=== PATIENT | male | born 1985 | race Caucasian/White ===

== ENCOUNTER 2022-02-19 16:38 | Emergency (ER) | payer OTHER, SELFPAY ==
[2022-02-19 16:51] VITALS: BP 111/70; PULSE 74; RESP 18; TEMP 36.2; O2SAT 99; BMI 30.6
--- NOTE | 2022-02-19 17:10 | ED.GENADULT ---
HPI - General Adult General Time Seen by Provider: 17:11 Date Seen: 02/19/22 Chief complaint: Neuro Symptoms/Altered Deficit Stated complaint: numbness in lt face and rt arm Time Seen by Provider: 02/19/22 16:48 History of Present Illness HPI narrative: Jamshid is a 36-year-old male past medical history includes anxiety presents emerged department from work with some neuro symptoms including numbness in the left face and arm. 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 Patient states over the last 4-5 days he has had some tingling on the top of his scalp, and some left-sided facial paresthesia, this will usually come and go, denies any facial weakness, difficulty with speech or swallowing, he also gets this intermittent left arm paresthesia and tingling. 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 Patient denies any cardiac history, family history noncontributory. Does not smoke socially uses alcohol, no illicit drug use. Patient denies any headache, visual deficits, nausea vomiting, he has no pain at this time, around 3 this afternoon his symptoms were present, he was instructed to be checked on the emergency department. Patient has no weakness in his upper and lower extremities, no issues with gait. He has not had any dizziness or lightheadedness. No recent illness, fevers, chills. No other concerns at this time. Related Data Home Medications Medication Instructions Recorded Confirmed No Known Home Medications 02/19/22 02/19/22 Allergies Allergy/AdvReac Type Severity Reaction Status Date / Time No Known Drug Allergies Allergy Verified 02/19/22 16:54 Review of Systems Status of ROS: Reports: 10 or more systems reviewed and unremarkable except as noted in History and below [facility] Social History Smoking Status: Never smoker Do you use any of these nicotine containing products: None Second hand tobacco smoke exposure: No How often do you have a drink containing alcohol: never How often do you have six or more drinks on one occasion: Never AUDIT-C Alcohol total score: 0 Non-prescribed substance use: denies use Exam Narrative: Exam Narrative: General: No obvious distress sitting comfortably HEENT: Tympanic membranes within normal limits, pupils equal round reactive to light, peripheral vision normal in all travis, finger discrimination, extraocular muscles intact, neck is supple full range of motion Lungs: Clear to auscultation bilaterally Heart: Normal sinus rhythm S1-S2 Abdomen: Soft nontender, bowel sounds present: Muscle skeletal: +5 strength his upper and lower extremities bilaterally Neuro: Cranial nerves 2-12 grossly intact, no focal deficits noted, gait within normal limits Psych: Mood and affect normal Const: Vital Signs, click to edit/add: Vital Signs - 24 hr 02/19/22 16:51 Temperature 97.1 F L Pulse Rate [Right Pulse Oximeter] 74 Respiratory Rate 18 Blood Pressure [Ri ght Upper Arm] 111/70 Pulse Oximetry 99 Oxygen Delivery Me thod Room Air Course Course Hospital Course: 5:00 PM: AIDET performed. work up will include cardiac labs due to his recent episode of chest pain, left arm numbness, including EKG, troponin, CRP, TSH, CMP and CK, less likely cardiac related, or neuropathy, rule out any metabolic abnormality, did discuss obtaining CT head without IV contrast, patient declines at this time due to cost, symptoms are intermittent, making more serious etiologies concerning. Reevaluation(s) Reevaluation #1: Patient was updated on his ECG and labs results, ECG showed a sinus bradycardia with sinus arrhythmia, no comparisons, no ectopy or acute ST changes, per ED provider. CBC was unremarkable, POC Troponin negative, metabolic panel, CRP, CK and TSH all within normal limits. He will follow up with primary care provider, to discuss whether MRI brain will be done on an outpatient basis, reasons return were given, all questions answered. Time: 18:06 Vital Signs Vital signs: Initial Vital Signs Temperature 97.1 F L 02/19/22 16:51 Temperature Source Temporal Artery Scan 02/19/22 16:51 Pulse Rate 74 02/19/22 16:51 Respiratory Rate 18 02/19/22 16:51 Blood Pressure 111/70 02/19/22 16:51 Blood Pressure Mean 83 02/19/22 16:51 Blood Pressure Position Sitting 02/19/22 16:51 Pulse Oximetry 99 11/03/22 16:51 Oxygen Delivery Method 02/19/22 16:51 Vital Signs Temperature 97.1 F L 02/19/22 16:51 Pulse Rate 74 02/19/22 16:51 Respiratory Rate 18 02/19/22 16:51 Blood Pressure 111/70 02/19/22 16:51 Pulse Oximetry 99 02/19/22 16:51 Oxygen Delivery Method 02/19/22 16:51 Temperature 97.1 F L 02/19/22 16:51 Pulse Rate 74 02/19/22 16:51 Respiratory Rate 18 02/19/22 16:51 Blood Pressure 111/70 02/19/22 16:51 Pulse Oximetry 99 02/19/22 16:51 Oxygen Delivery Method 02/19/22 16:51 Medical Decision Making Lab Data Labs: Lab Results 02/19/22 02/19/22 02/19/22 Range/Units 17:21 17:21 17:21 WBC 5.88 (4.50-11.00) K/uL RBC 5.30 (4.30-5.90) m/uL Hgb 15.1 (13.5-17.5) gm/dL Hct 44.4 (37.0-53.0) % MCV 84 (80-100) fL MCH 29 (26-34) pg MCHC 34 (32-36) gm/dL RDW Coeff of Ct 12.3 (11.5-15.5) % Plt Count 323 (140-440) K/uL Neut % (Auto) 47.2 (42.0-72.0) % Lymph % (Auto) 44.2 H (20-44) % Petroleum % (Auto) 5.6 (0.0-11.0) % Eos % (Auto) 2.7 (0.0-7.0) % Baso % (Auto) 0.3 (0.0-3.0) % Neut # (Auto) 2.77 (1.7-7.0) K/uL Lymph # (Auto) 2.60 (0.90-2.90) K/uL Petroleum # (Auto) 0.30 (0.00-0.90) K/UL Eos # (Auto) 0.16 (0.00-0.50) K/uL Baso # (Auto) 0.02 (0.00-0.30) K/uL Abs Immat Gran (auto) 0.00 (0.00-0.30) K/uL Imm/Tot Granulo (auto) 0.0 % Sodium 141 (135-149) mmol/L Potassium 4.3 (3.6-5.1) mmol/L Chloride 102 (96-114) mmol/L Carbon Dioxide 26 (20-32) mmol/L BUN 19 (5-24) mg/dL Creatinine 1.1 (0.5-1.5) mg/dL Estimated Creat Clear 96.78 Estimated GFR 90 ml/min Glucose 91 (60-115) mg/dL Calcium 9.4 (8.4-10.6) mg/dL Total Bilirubin 0.7 (0.1-1.5) mg/dL AST 28 (12-35) U/L ALT 28 (4-50) U/L Alkaline Phosphatase 72 (40-150) U/L Total Creatine Kinase 147 (54-186) U/L C-Reactive Protein < 0.5 L (0.5-1.0) mg/dL Total Protein 7.9 (6.0-8.3) g/dL Albumin 5.0 (3.3-5.0) g/dL TSH 1.400 (0.270-4.20) uIU/mL POC Troponin I (0.01-0.04) ng/ml 02/19/22 Range/Units 17:34 WBC (4.50-11.00) K/uL RBC (4.30-5.90) m/uL Hgb (13.5-17.5) gm/dL Hct (37.0-53.0) % MCV (80-100) fL MCH (26-34) pg MCHC (32-36) gm/dL RDW Coeff of Ct (11.5-15.5) % Plt Count (140-440) K/uL Neut % (Auto) (42.0-72.0) % Lymph % (Auto) (20-44) % Petroleum % (Auto) (0.0-11.0) % Eos % (Auto) (0.0-7.0) % Baso % (Auto) (0.0-3.0) % Neut # (Auto) (1.7-7.0) K/uL Lymph # (Auto) (0.90-2.90) K/uL Petroleum # (Auto) (0.00-0.90) K/UL Eos # (Auto) (0.00-0.50) K/uL Baso # (Auto) (0.00-0.30) K/uL Abs Immat Gran (auto) (0.00-0.30) K/uL Imm/Tot Granulo (auto) % Sodium (135-149) mmol/L Potassium (3.6-5.1) mmol/L Chloride (96-114) mmol/L Carbon Dioxide (20-32) mmol/L BUN (5-24) mg/dL Creatinine (0.5-1.5) mg/dL Estimated Creat Clear Estimated GFR ml/min Glucose (60-115) mg/dL Calcium (8.4-10.6) mg/dL Total Bilirubin (0.1-1.5) mg/dL AST (12-35) U/L ALT (4-50) U/L Alkaline Phosphatase (40-150) U/L Total Creatine Kinase (54-186) U/L C-Reactive Protein (0.5-1.0) mg/dL Total Protein (6.0-8.3) g/dL Albumin (3.3-5.0) g/dL TSH (0.270-4.20) uIU/mL POC Troponin I 0.00 L (0.01-0.04) ng/ml Discharge Plan Discharge Clinical Impression: Paresthesia, Atypical chest pain, Electrical shock sensation Patient Disposition: Home, Self-Care Condition: Improved Instructions: Paresthesia (ED) Additional Instructions: To follow-up with a primary care provider over the next 7-10 days, discussed about obtaining a MRI brain if needed, return if worsening symptoms. Activity Level: No Restrictions Discharge Diet: Regular Prescriptions: No Action No Known Home Medications Stand Alone Forms: [employer] Info Instructions
[2022-02-19 17:47] LABS: Basophils Absolute Auto 0.02 K/uL (0.00-0.30); Basophils Percent Auto 0.3 % (0.0-3.0); Eosinophils Absolute Auto 0.16 K/uL (0.00-0.50); Eosinophils Percent Auto 2.7 % (0.0-7.0); Hematocrit 44.4 % (37.0-53.0); Hemoglobin* 15.1 gm/dL (13.5-17.5); Lymphocytes Percent Auto 44.2 % (20-44); Mean Corpuscular HGB Conc 34 gm/dL (32-36); Mean Corpuscular Hemoglobin 29 pg (26-34); Mean Corpuscular Volume 84 fL (80-100); Monocytes Percent Auto 5.6 % (0.0-11.0); Neutrophils Absolute Auto 2.77 K/uL (1.7-7.0); Neutrophils Percent Auto 47.2 % (42.0-72.0); Platelet Count* 323 K/uL (140-440); RDW Coefficient of Variation % 12.3 % (11.5-15.5); White Blood Count* 5.88 K/uL (4.50-11.00)
[2022-02-19 17:48] LABS: Slide Review Reflex No
[2022-02-19 18:06] LABS: Chloride* 102 mmol/L (96-114)
[2022-02-19 18:07] LABS: Potassium* 4.3 mmol/L (3.6-5.1); Sodium* 141 mmol/L (135-149)
[2022-02-19 18:09] LABS: Alkaline Phosphatase* 72 U/L (40-150); Aspartate Amino Transferase* 28 U/L (12-35); Bilirubin Total* 0.7 mg/dL (0.1-1.5); Carbon Dioxide* 26 mmol/L (20-32); Creatinine* 1.1 mg/dL (0.5-1.5); Est. Creatinine Clearance* 96.78; Estimated Glomerular Filt Rate 90 ml/min; Total Protein* 7.9 g/dL (6.0-8.3)
[2022-02-19 18:10] LABS: Alanine Aminotransferase* 28 U/L (4-50); Blood Urea Nitrogen* 19 mg/dL (5-24); Calcium* 9.4 mg/dL (8.4-10.6); Creatine Kinase* 147 U/L (54-186); Glucose* 91 mg/dL (60-115)
[2022-02-19 18:16] LABS: C Reactive Protein* < 0.5 mg/dL (0.5-1.0)
== END 2022-02-19 18:48 | disposition home or self-care (01) ==
PROVIDERS: Emergency Provider Student in an Organized Health Care Education/Training Program
DX: R20.2 Paresthesia of skin (principal); R07.89 Other chest pain; T75.4XXA Electrocution, initial encounter
CPT/HCPCS: 36415; 80053; 82550; 84443; 85025; 86140; 93005; 99283; 99284

== ENCOUNTER 2022-05-07 14:00 | Outpatient (CLI) | payer OTHER, SELFPAY ==
[2022-05-07 17:08] LABS: Albumin* 4.6 g/dL (3.3-5.0); Chloride* 106 mmol/L (96-114); Potassium* 4.5 mmol/L (3.6-5.1); Sodium* 142 mmol/L (135-149)
[2022-05-07 17:11] LABS: Alanine Aminotransferase* 28 U/L (4-50); Alkaline Phosphatase* 68 U/L (40-150); Aspartate Amino Transferase* 26 U/L (12-35); Bilirubin Total* 1.2 mg/dL (0.1-1.5); Blood Urea Nitrogen* 20 mg/dL (5-24); Carbon Dioxide* 29 mmol/L (20-32); Creatinine* 1.1 mg/dL (0.5-1.5); Estimated Glomerular Filt Rate 90 ml/min; Glucose* 99 mg/dL (60-115); Total Protein* 7.5 g/dL (6.0-8.3)
[2022-05-07 17:12] LABS: Calcium* 9.6 mg/dL (8.4-10.6)
[2022-05-07 17:41] LABS: TSH With Reflex to FT4* 0.971 uIU/mL (0.270-4.200)
== END 2022-05-07 14:01 | disposition home or self-care (01) ==
PROVIDERS: Visit Provider Family Medicine
DX: Z00.00 Encounter for general adult medical examination without abnormal findings (principal); F41.9 Anxiety disorder, unspecified; R35.0 Frequency of micturition; R53.83 Other fatigue
CPT/HCPCS: 80053; 84443

== ENCOUNTER 2023-08-20 23:37 | Outpatient (CLI) | payer OTHER, SELFPAY ==
--- OUTSIDE RECORDS SUMMARY | 2023-09-04 03:19 | XMS_ITS | Clinical Summary ---
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 Encounters Date Type Department Care Team Description 08/26/2023 Orders Only [facility] [address] [place] [address] Antonio Jason 1 scan: (1-Ord) Holter Report ([id number]) 08/25/2023 Orders Only [facility] [address] [place] [address] Mine Hoyos <No scans attached> 08/21/2023 1:40 PM CDT Ancillary Procedure [facility] [address] [place] [address] from Last 3 Months Family History Relation Name Status Comments Brother [...] for age 35-44 2021 COVID-19 vaccine series ( season) 2022 Influenza for age 9-49 12/19/2023 Pneumococcal series for age 6-64 Aged Out No longer eligible based on patient's age to complete this topic Procedures Procedure Name Priority Date/Time Associated Diagnosis Comments HOLTER MONITOR 48 HOURS Routine 08/26/2023 12:00 AM CDT Syncope Bradycardia ECHO TTE COMPLETE WO CONTRAST W BUBBLE Routine 08/21/2023 3:10 PM CDT Syncope from Last 3 Months Results * HOLTER MONITOR 48 HOURS (08/26/2023 12:00 AM CDT) Rashawn Lam MD CARDIAC SERVICES ORD * ECHO TTE COMPLETE WO CONTRAST W BUBBLE (08/21/2023 3:10 PM CDT) AORTIC VALVE MEAN PG 3 mmHg EJECTION FRACTION 64 % PEAK TR VELOCITY 2.4 m/s LVEDD 5.2 cm Anatomical Region Laterality Modality Ultrasound 08/21/2023 2:34 PM CDT Narrative 08/21/2023 8:41 PM CDT ECHOCARDIOGRAM JAMSHID DINH ?Accession#: ?? [id number] : ?1985 37 years Study Date: ?? 08/21/2023 2:34:31 PM Gender: M ? BP: ? 120/71 mmHg Height: 173.00 cm ? BSA: ?2.15 m? ? ? Weight: 102.00 kg ? Tech: ? MCK ?Referring MD: RASHAWN LAM Site: ? [facility] Reading Location: [facility] Patient Location: Inpatient. Procedure: 2D w/ Bubbles, Color Doppler and Spectral Doppler. Indication for study: Syncope Cardiac Rhythm: Sinus bradycardia.Study quality: Fair. Final Impressions: 1. Normal left ventricular size, normal wall thickness, normal global systolic function, calculated EF of 64 %. 2. Right ventricular cavity size is normal, global systolic RV function is normal. 3. No hemodynamically significant valvular heart disease. 4. Normal estimated RA (3 mmHg) and RV systolic (25 mmHg) pressures. 5. 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 There are sparse left sided bubbles noted after 5 cardiac cycles suggesting possible intrapulmonary shunting (clip 100). Clinical correlation advised. Chamber Sizes and Function Normal left ventricular size, normal wall thickness, normal global systolic function, calculated EF of 64 %. Left atrial size is normal. Right ventricular cavity size is normal, global systolic RV function is normal. RV wall thickness is normal. The right atrium is normal. Right atrial volume index is 21 ml/m? ? ?. Right atrial area is 16 cm? ? ?. The pulmonary artery is not well visualized. The sinus of Valsalva is normal sized. The ascending aorta is normal sized. Valves, RV Pressures and Diastolic Function The aortic valve is normal in structure and trileaflet, no stenosis and no regurgitation. The mitral valve is normal in structure, trace mitral regurgitation. Normal diastolic function. The tricuspid valve is normal in structure. Tricuspid regurgitation is trace regurgitation. The tricuspid regurgitant velocity is 2.4 m/s, the estimated right ventricular systolic pressure is 22 mmHg plus right atrial pressure. The pulmonic valve is not well visualized. Trace pulmonary regurgitation. Masses, Effusion, Shunts There is no pericardial effusion. The inferior vena cava is normal sized, respiratory size variation greater than 50%. No left to right shunting was detected by limited color flow Doppler interrogation of the interatrial septum. MEASUREMENTS AND CALCULATIONS 2-D Measurements and LV Function: LVID (d) 5.2 cm Planimetered EF 64 % LVID (s) 2.8 cm LV FS% (2D) ? 46 % IVS (d) ??1.0 cm LVOT diameter ?? 2.5 cm LVPW (d) 1.0 cm HR ?48 bpm Ao Sinus 3.4 cm LA Vol index ?22 ml/m2 Asc Ao ?? 2.9 cm RA Vol index ?21 ml/m2 LA ? 3.6 cm RA area ? 16 cm?RV Max 4C (d) ?? 4.6 cm Diastology: Mitral ?Tissue Doppler E Peak 0.9 m/s ??e', Septum ? 0.14 m/s A Peak 0.4 m/s ??e', Lateral ?0.21 m/s E/A ?2.3 ?E/e' Average ?? 5.21 DT ? 202 msec Aortic Valve: Vmax ? 1.3 m/s ??CHRISTIANO (V) ?? 4.46 cm? ? ? VTI ?0.30 m ?? CHRISTIANO (I) ?? 4.16 cm? ? ? LVOT V max 1.2 m/s ??Max PG ?7 mmHg LVOT VTI ?? 0.25 m ?? Mean PG ?? 3 mmHg SV ? 125 ml ?? Dim Index 0.84 SV index ?? 58 ml/m? ? ? CO ?6.0 l/min ?CI ?2.8 l/min/m? ? ? Mitral Valve: MVA ?3.8 cm? ? ? MV P 1/2 59 msec Tricuspid Valve and estimated PA pressures: TR Vmax 2.4 m/s TAPSE 3.3 cm TR maxG 22 mmHg . This study was interpreted by an [facility] accredited facility. CC: HIM (med records) [facility], Med/Surg - IP [facility]. ??Final ?? Procedure Note Gustavo Byrd MD - 08/21/2023 ECHOCARDIOGRAM JAMSHID DINH : 1985 37 years Study Date: 08/21/2023 2:34:31 PM Gender: M BP: 120/71 mmHg Height: 173.00 cm BSA: 2.15 m? ? ? Weight: 102.00 kg Tech: [facility] Referring MD: RASHAWN LAM Site: [facility] Reading Location: [facility] Patient Location: Inpatient. Procedure: 2D w/ Bubbles, Color Doppler and Spectral Doppler. Indication for study: Syncope Cardiac Rhythm: Sinus bradycardia.Study quality: Fair. Final Impressions: 1. Normal left ventricular size, normal wall thickness, normal globalsystolic function, calculated EF of 64 %. 2. Right ventricular cavity size is normal, global systolic RV functionis normal. 3. No hemodynamically significant valvular heart disease. 4. Normal estimated RA (3 mmHg) and RV systolic (25 mmHg) pressures. 5. 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 There are sparse left sidedbubbles noted after 5 cardiac cycles suggesting possible intrapulmonaryshunting (clip 100). Clinical correlation advised. Chamber Sizes and Function Normal left ventricular size, normal wall thickness, normal globalsystolic function, calculated EF of 64 %. Left atrial size is normal.Right ventricular cavity size is normal, global systolic RV function isnormal. RV wall thickness is normal. The right atrium is normal. Rightatrial volume index is 21 ml/m? ? ?. Right atrial area is 16 cm? ? ?. Thepulmonary artery is not well visualized. The sinus of Valsalva is normalsized. The ascending aorta is normal sized. Valves, RV Pressures and Diastolic Function The aortic valve is normal in structure and trileaflet, no stenosis and noregurgitation. The mitral valve is normal in structure, trace mitralregurgitation. Normal diastolic function. The tricuspid valve is normal instructure. Tricuspid regurgitation is trace regurgitation. The tricuspidregurgitant velocity is 2.4 m/s, the estimated right ventricular systolicpressure is 22 mmHg plus right atrial pressure. The pulmonic valve is notwell visualized. Trace pulmonary regurgitation. Masses, Effusion, Shunts There is no pericardial effusion. The inferior vena cava is normal sized,respiratory size variation greater than 50%. No left to right shunting wasdetected by limited color flow Doppler interrogation of the interatrialseptum. MEASUREMENTS AND CALCULATIONS 2-D Measurements and LV Function: LVID (d) 5.2 cm Planimetered EF 64 % LVID (s) 2.8 cm LV FS% (2D) 46 % IVS (d) 1.0 cm LVOT diameter 2.5 cm LVPW (d) 1.0 cm HR 48 bpm Ao Sinus 3.4 cm LA Vol index 22 ml/m2 Asc Ao 2.9 cm RA Vol index 21 ml/m2 LA 3.6 cm RA area 16 cm? ? ? RV Max 4C (d) 4.6 cm Diastology: Mitral Tissue Doppler E Peak 0.9 m/s e', Septum 0.14 m/s A Peak 0.4 m/s e', Lateral 0.21 m/s E/A 2.3 E/e' Average 5.21 DT 202 msec Aortic Valve: Vmax 1.3 m/s CHRISTIANO (V) 4.46 cm? ? ? VTI 0.30 m CHRISTIANO (I) 4.16 cm? ? ? LVOT V max 1.2 m/s Max PG 7 mmHg LVOT VTI 0.25 m Mean PG 3 mmHg SV 125 ml Dim Index 0.84 SV index 58 ml/m? ? ? CO 6.0 l/min CI 2.8 l/min/m? ? ? Mitral Valve: MVA 3.8 cm? ? ? MV P 1/2 59 msec Tricuspid Valve and estimated PA pressures: TR Vmax 2.4 m/s TAPSE 3.3 cm TR maxG 22 mmHg . This study was interpreted by an [facility] accredited facility. CC: HIM (med records) [facility], Med/Surg - IP [facility]. Final Rashawn Lam MD ECHO ORD from Last 3 Months Care Teams Asbestos Hazard Abatement Worker Relationship Specialty Start Date End Date Pcp, No . PCP - General 06/01/19
--- OUTSIDE RECORDS SUMMARY | 2023-09-04 03:19 | XMS_ITS | Clinical Summary ---
Author Name Unknown Organization [facility] Address [address] [place] [address] Care Team Providers Care Director Sales Support Name Role Phone Needs Pcp, Assignment Primary Care Provider Source Comments You are receiving this document as you are listed as the primary care provider,follow-up provider, or the patient has been referred to you for consultation.This is in compliance with the Medicare and[facility] E[facility] Incentive Program,which states Providers who transition [...] (1 - 2022-2 4 season) 2022 Influenza (Season Ended) 2023 DTaP/Tdap/Td (2 - Tdap) 11/27/2027 11/26/2017 Zoster/Shingles [...] age to complete this topic Care Teams Director Sales Support Relationship Specialty Start Date End Date Needs Pcp, [place] [address] PCP - General 01/08/22
== END 2023-08-20 23:38 | disposition home or self-care (01) ==
LOC: AMB 09-04 03:16
PROVIDERS: PCP Family Medicine; Visit Provider Family Medicine
DX: R56.9 Unspecified convulsions (principal)
CPT/HCPCS: A0425; A0433

== ENCOUNTER 2023-08-21 00:05 | Observation (INO) | payer OTHER, SELFPAY ==
[2023-08-21] VITALS (49 sets, daily range): BP systolic 102–125; BP diastolic 53–86; PULSE 51–87; RESP 14–18; TEMP 36.4–36.7; O2SAT 74–100; BMI 33.5; BMI 34.1
--- NOTE | 2023-08-21 00:14 | XR_ITS ---
Patient: KIM DINH Facility:?[facility] Patient ID:?[id number] Site Patient ID:?[id number]. Site :?[id number] Study:?XRay-Chest 1V PORTABLE-08/21/2023 12:35:03 AM Ordering Physician:DARSHANA Final Report: INDICATION: Bradycardia. TECHNIQUE: Chest 1 view. COMPARISON: 01/12/2016. FINDINGS: Lines and tubes: None. Cardiovascular and mediastinum: Heart size and vasculature are normal in caliber and appearance. Lungs and pleural spaces: Mild low lung volumes with bronchovascular crowding. No focal consolidation. No pleural effusion or pneumothorax Bones and soft tissues: Unremarkable for age. IMPRESSION: No evidence of an acute pulmonary process. Dictated by Gustavo Suggs MD @ 08/21/2023 12:47:47 AM Signed by:?Gustavo Suggs MD @08/21/2023 12:47:47 AM (Electronic Signature)
[2023-08-21] MEDS: 0.9 % SODIUM CHLORIDE 1000 ml 1,000 ML IV (00:20)
--- NOTE | 2023-08-21 00:23 | ED.GENADULT ---
HPI - General Adult General Chief complaint: Arrhythmia/Palpitations Stated complaint: siezure Time Seen by Provider: 08/21/23 00:14 Source: patient, family and EMS Mode of arrival: EMS History of Present Illness HPI narrative: Attended immediately upon arrival to ambulance [place] 37 y/o healthy male with hx anxiety, feeling not well one hour prior to arrival, non-specific. No recent fevers, illness or trauma. EMS called, observed 30 second syncopal event including fall from standing height, then became bradycardic to 30s, persistent. We were told by EMS that he did not have a palpable pulse, therefore pacing initiated. continues pacing upon arrival. ETOH consumption today at a ball game out in the sun, did smoke MJ, as his does every nite for over 10 years, consistent supplier, not new supply. Only home med is lexapro, not new supply. No other toxic ingestion. No prior cardiac history. No injury or trauma. States that he had an episode of positional numbness in his leg while sitting out on the lawn at the ball game but this improved with repositioning. Is not having any focal neurological changes now. When he fell from standing height, witnessed event. Did not wet himself, no tongue biting, not thought to be exhibiting any signs of a postictal phase. EMS observed that there were a couple of myoclonic jerk movements with the syncope but no persistent seizure-like activity, they did witness it. No prior history of similar episodes per patient. Prior ankle fracture and surgery, hx anxiety. ALEXIS, not on CPAP. Only home medication is Lexapro. Denies allergies. No tobacco use. ROS is notable for the vague symptoms as described above and the bradycardia as reported by EMS. Otherwise denies times 12 systems. Related Data Previous Rx's Medication Instructions Recorded escitalopram oxalate 10 mg tablet 10 mg PO QDAY #90 tabs 06/22/23 (Lexapro) Allergies Allergy/AdvReac Type Severity Reaction Status Date / Time No Known Drug Allergies Allergy Verified 06/22/23 11:01 [facility] Medical History Major depression (~05/07/22) ?F32.9 - Major depressive disorder, single episode, unspecified (ICD-10) Generalized anxiety disorder ?F41.1 - Generalized anxiety disorder (ICD-10) Tinea cruris ?B35.6 - Tinea cruris (ICD-10) Pneumonia ?J18.9 - Pneumonia, unspecified organism (ICD-10) History of herpes zoster ?Z86.19 - Personal history of other infectious and parasitic diseases (ICD-10) Hemoptysis ?R04.2 - Hemoptysis (ICD-10) Obstructive sleep apnea (2016) ?G47.33 - Obstructive sleep apnea (adult) (pediatric) (ICD-10) Surgical History History of wisdom tooth extraction (2016) ?K08.409 - Partial loss of teeth, unspecified cause, unspecified class (ICD-10) History of nasal septoplasty (2016) ?Z98.890 - Other specified postprocedural states (ICD-10) History of tonsillectomy (2016) ?Z90.89 - Acquired absence of other organs (ICD-10) History of vasectomy (2016) ?Z98.52 - Vasectomy status (ICD-10) Family History Mother Depression Anxiety Alcohol dependence Sister Depression Anxiety Social History 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 Does not exercise Nonsmoker, quit 2009 history of 5 pack years uses chewing tobacco Rarely consumes alcohol Consumes edilma excessive amount of caffeine What is your current living situation?: I presently have a place to live Problems where you live: no known problems Problems where you live details: n/a In the past 12 months, utilities in danger of being shut off: no In past 12 months, lack of transportation kept you from medical appts, meetings, work, or getting things needed for daily living: no In the past 12 mos, have been you worried that your food would run out before you had money to buy more?: never true In the past 12 mos, the food you bought just didn't last and you didn't have money to buy more?: never true Physical activity type: none Smoking Status: Former smoker Do you use any of these nicotine containing products: None Second hand tobacco smoke exposure: No How often do you have a drink containing alcohol: never How often do you have six or more drinks on one occasion: Never AUDIT-C Alcohol total score: 0 Non-prescribed substance use: denies use Caffeine: Yes Are you now , , , , never or living with a partner: Social isolation score (0-1 are the most socially isolated patients): 1 How often does anyone, including family, friends and others, physically hurt you: never How often does anyone, including family, friends and others, insult or talk down to you: never How often does anyone, including family, friends and others, threaten you with harm: never How often does anyone, including family, friends and others, scream or curse at you: never Little interest or pleasure in doing things: not at all Feeling down, depressed, or hopeless: not at all Exam Const: Vital Signs, click to edit/add: Vital Signs - 24 hr 08/21/23 00:24 08/21/23 00:26 08/21/23 00:29 Temperature 98.1 F Pulse Rate 73 60 Pulse Rate [Pulse Oximeter] 58 L Respiratory Rate 18 Blood Pressure 115/77 Blood Pressure [Ri ght Upper Arm] 102/53 L Pulse Oximetry 100 [facility] 08/21/23 00:29 08/21/23 00:29 08/21/23 00:29 Temperature Pulse Rate 60 60 60 Pulse Rate [Pulse Oximeter] Respiratory Rate Blood Pressure 115/77 115/77 115/77 Blood Pressure [Ri ght Upper Arm] Pulse Oximetry 100 100 [facility] 08/21/23 00:30 08/21/23 00:32 08/21/23 00:36 Temperature Pulse Rate 66 67 72 Pulse Rate [Pulse Oximeter] Respiratory Rate Blood Pressure 120/78 122/80 Blood Pressure [Ri ght Upper Arm] Pulse Oximetry 100 100 [facility] 08/21/23 00:42 08/21/23 00:43 08/21/23 00:45 Temperature Pulse Rate 76 74 72 Pulse Rate [Pulse Oximeter] Respiratory Rate Blood Pressure 123/72 125/76 Blood Pressure [Ri ght Upper Arm] Pulse Oximetry 74 L 100 100 Oxygen Delivery [facility] 08/21/23 00:46 08/21/23 00:51 08/21/23 00:52 Temperature Pulse Rate 73 73 79 Pulse Rate [Pulse Oximeter] Respiratory Rate Blood Pressure 119/82 119/72 Blood Pressure [Ri ght Upper Arm] Pulse Oximetry 100 100 [facility] 08/21/23 00:56 08/21/23 01:00 08/21/23 01:01 Temperature Pulse Rate 78 69 74 Pulse Rate [Pulse Oximeter] Respiratory Rate Blood Pressure 116/86 111/68 Blood Pressure [Ri ght Upper Arm] Pulse Oximetry 100 100 [facility] 08/21/23 01:01 08/21/23 01:01 08/21/23 01:06 Temperature Pulse Rate 74 74 75 Pulse Rate [Pulse Oximeter] Respiratory Rate Blood Pressure 111/68 111/68 119/70 Blood Pressure [Ri ght Upper Arm] Pulse Oximetry 100 100 [facility] 08/21/23 01:11 08/21/23 01:11 08/21/23 01:11 Temperature Pulse Rate 78 78 78 Pulse Rate [Pulse Oximeter] Respiratory Rate Blood Pressure 122/70 122/70 122/70 Blood Pressure [Ri ght Upper Arm] Pulse Oximetry 100 100 [facility] 08/21/23 01:15 08/21/23 01:16 08/21/23 01:21 Temperature Pulse Rate 82 78 78 Pulse Rate [Pulse Oximeter] Respiratory Rate Blood Pressure 120/72 111/70 Blood Pressure [Ri ght Upper Arm] Pulse Oximetry 100 100 [facility] 08/21/23 01:26 08/21/23 01:31 08/21/23 01:32 Temperature Pulse Rate 87 85 80 Pulse Rate [Pulse Oximeter] Respiratory Rate Blood Pressure 120/71 108/75 Blood Pressure [Ri ght Upper Arm] Pulse Oximetry 100 100 [facility] 08/21/23 01:36 08/21/23 01:41 08/21/23 01:45 Temperature Pulse Rate 77 76 79 Pulse Rate [Pulse Oximeter] Respiratory Rate Blood Pressure 110/65 109/64 Blood Pressure [Ri ght Upper Arm] Pulse Oximetry 100 100 [facility] 08/21/23 01:46 08/21/23 01:51 08/21/23 01:56 Temperature Pulse Rate 80 79 79 Pulse Rate [Pulse Oximeter] Respiratory Rate Blood Pressure 113/66 110/64 109/66 Blood Pressure [Ri ght Upper Arm] Pulse Oximetry 100 100 100 Oxygen Delivery [facility] 08/21/23 02:00 08/21/23 02:01 08/21/23 02:06 Temperature Pulse Rate 74 78 77 Pulse Rate [Pulse Oximeter] Respiratory Rate Blood Pressure 110/67 110/66 Blood Pressure [Ri ght Upper Arm] Pulse Oximetry 100 100 100 Oxygen Delivery [facility] 08/21/23 02:11 08/21/23 02:15 08/21/23 02:16 Temperature Pulse Rate 69 73 68 Pulse Rate [Pulse Oximeter] Respiratory Rate Blood Pressure 110/66 110/63 Blood Pressure [Ri ght Upper Arm] Pulse Oximetry 100 100 100 Oxygen Delivery [facility] 08/21/23 02:21 08/21/23 02:22 Temperature Pulse Rate 71 67 Pulse Rate [Pulse Oximeter] Respiratory Rate Blood Pressure 105/66 Blood Pressure [Ri ght Upper Arm] Pulse Oximetry 100 100 Oxygen Delivery [facility] Documenting provider has reviewed patient's vital signs: yes Common normals: alert Other: Pale, drowsy (was not given sedatives). Answers questions slowly, easily distracted. Diaphoretic. HENMT: Common normals: normocephalic, moist oral mucous membranes and oropharynx normal Head and scalp: normocephalic Face and sinus: normal facial exam Mouth: oral and palatal mucosa normal Eye: Common normals: PERRL, EOMs intact bilaterally and conjunctivae normal General eye: normal appearance of both eyes Conjunctiva: conjunctiva(e) normal Pupil: PERRL Neck & C-Spine: Common normals: no lymphadenopathy Resp: Common normals: normal respiratory effort, no use of accessory muscles and clear to auscultation bilaterally Effort & inspection: able to speak in complete sentences Auscultation: clear to auscultation bilaterally Cardio: Common normals: regular rate and regular rhythm Rate: regular rate Rhythm: regular rhythm Other: paced, cannot assess well. GI: Common normals: Normal to inspection, nondistended, normoactive bowel sounds present, soft to palpation, non-tender, no hepatosplenomegaly and no masses Palpation: soft and no hepatosplenomegaly Extremity: Common normals: normal to inspection, normal capillary refill and no pedal edema Neuro: Common normals: moves all extremities Sensorium/orientation: alert Speech: speech normal Motor exam: no movement abnormalities noted Psych: Other: mentation a little slowed, no aggitation. Skin: Common normals: no rashes or lesions noted General skin exam: no rashes or lesions noted Course Course ED Course: Bradycardic event, after episode of syncope while at his home. Differential diagnosis including arrhythmia, coronary artery disease, seizure, stroke, sepsis, dehydration, hypotension, intoxication, among others. Patient arrives paste. Initially, he is assessed getting out of the EMS rig and can answer some basic questions but mentation seems a little slow. To IVs placed, blood pressure stable still currently paced. Oxygen applied due to O2 sats around 90% with improvement. I elected to call for Cardiology consult and possible transfer. I observed from the corner desk while nursing team is switching patient to our pacing device from the EMS device. Patient did continue to become bradycardic to 50, therefore I recommended that we continue pacing. There was about a 20 minute delay from when I originally spoke with the transfer center before I was able to speak with the bus repair supervisor. At that time about 45 minutes had passed since his original syncopal spell. Offset Assistant Press Operator really thought that this sounded more like a vagal event following syncope which could certainly make sense. Dehydration and intoxication as well as marijuana could certainly be contributing. He recommended that we try to turn down his pacing demand again and see if he can maintain his own perfusion. This was done and this time it patient resumed a heart rate of about 65 with good pulses and blood pressure of 110 over 60s. Offset Assistant Press Operator was updated. They recommended overnight observation follow-up echo in the morning and continue neurological surveillance. I elected not to do a head CT as his neurological status had improved and his fall was only from standing height without use of anticoagulants. We are going to observe him overnight any way, therefore the potential to mess any type of catastrophic event would be small. We could consider doing imaging if his symptoms wax and wane or additional neurological workup if warranted. At this time his bradycardic episode was most likely related to a vasovagal spell with the risk factors of dehydration, alcohol intake and marijuana use. Cannot exclude arrhythmia, initial troponin reassuring. Remainder of labs do not show any necessarily contributing helpful information alcohol level is low at this point. Spoke with the hospitalist and he was agreeable hesitant lead to some observation. Would defer further neurological workup if cardiac status is found to be normal. Patient may have better memory in the morning as well, history is a bit difficult to follow patching the other from patient, family and EMS team. Vital Signs Vital signs: Initial Vital Signs Pulse Rate 73 08/21/23 00:24 Pulse Oximetry 100 08/21/23 00:24 Vital Signs Pulse Rate 73 08/21/23 00:24 Pulse Oximetry 100 08/21/23 00:24 Temperature 97.9 F 08/21/23 03:07 Pulse Rate 70 08/21/23 03:07 Respiratory Rate 18 08/21/23 03:07 Blood Pressure 120/71 08/21/23 03:07 Pulse Oximetry 98 08/21/23 03:07 Oxygen Delivery Method Room Air 08/21/23 03:07 Medications Administered Medications: Discontinued Medications Generic Name Dose Route Start Last Admin Trade Name Freq PRN Reason Stop Dose Admin Sodium Chloride 1,000 mls @ 1,000 mls/hr 08/21/23 00:15 08/21/23 02:00 0.9 % Sodium Chloride 1000 Ml IV 08/21/23 01:14 Infused .Q1H SALOMÓN Infusion Medical Decision Making Lab Data Lab results reviewed: Yes I reviewed the patient's lab results Lab results narrative: Initially reassuring labs. Labs: Lab Results 08/21/23 Range/Units 00:13 WBC 10.62 (4.50-11.00) K/uL RBC 4.99 (4.30-5.90) m/uL Hgb 14.4 (13.5-17.5) gm/dL Hct 42.3 (37.0-53.0) % MCV 85 (80-100) fL MCH 29 (26-34) pg MCHC 34 (32-36) gm/dL RDW Coeff of Ct 12.6 (11.5-15.5) % Plt Count 309 (140-440) K/uL Neut % (Auto) 29.9 L (42.0-72.0) % Lymph % (Auto) 61.1 H (20-44) % [place] % (Auto) 5.6 (0.0-11.0) % Eos % (Auto) 2.9 (0.0-7.0) % Baso % (Auto) 0.3 (0.0-3.0) % Neut # (Auto) 3.20 (1.7-7.0) K/uL Lymph # (Auto) 6.50 H (0.90-2.90) K/uL [place] # (Auto) 0.60 (0.00-0.90) K/UL Eos # (Auto) 0.31 (0.00-0.50) K/uL Baso # (Auto) 0.03 (0.00-0.30) K/uL Abs Immat Gran (auto) 0.02 (0.00-0.30) K/uL Imm/Tot Granulo (auto) 0.2 % Diff Slide Review Acceptable Review (Acceptable) Sodium 137 (135-149) mmol/L Potassium 3.1 L (3.6-5.1) mmol/L Chloride 104 (96-114) mmol/L Carbon Dioxide 24 (20-32) mmol/L Anion Gap 9 (7-15) mEq/L BUN 17 (5-24) mg/dL Creatinine 1.0 (0.5-1.5) mg/dL Estimated Creat Clear 98.80 Estimated GFR 100 ml/min Glucose 130 H (60-115) mg/dL Lactate 2.3 H (0.5-1.9) mmol/L Calcium 8.7 (8.4-10.6) mg/dL Total Bilirubin 0.5 (0.1-1.5) mg/dL AST 42 H (12-35) U/L ALT 42 (4-50) U/L Alkaline Phosphatase 57 (40-150) U/L C-Reactive Protein < 0.5 L (0.5-1.0) mg/dL Total Protein 7.4 (6.0-8.3) g/dL Albumin 4.5 (3.3-5.0) g/dL Ethyl Alcohol < 0.01 L (0.01-0.03) % ECG Data Attestation: I personally reviewed and interpreted this ECG as follows: Prior ECG tracings: not available for review Interpretation: Initially arrived paced, initial EKG could not be obtained. After we were able to wean him off of pacing, normal sinus rhythm with a rate of 71, no significant ST or T-wave abnormalities. Normal intervals and axis. Discharge Plan Discharge Clinical Impression: Bradycardia, Syncope and collapse Patient Disposition: Admitted As Observation
--- OUTSIDE RECORDS SUMMARY | 2023-08-21 00:24 | XMS_ITS | Clinical Summary ---
Author Name Unknown Organization [facility] Address [address] [place] [address] Care Team Providers Care Earth Science Professor Name Role Phone Needs Pcp, Assignment Primary Care Provider Source Comments You are receiving this document as you are listed as the primary care provider,follow-up provider, or the patient has been referred to you for consultation.This is in compliance with the Medicare and[facility] EHR Incentive Program,which states Providers who transition their patient to another setting of careor provider of care or refers their patient to another provider of care shouldprovide summary care record for each transition of care or referral. [facility] Allergies No known active allergies Medications Medication Sig Dispensed Refills Start Date End Date Status pseudoephedrine (AKA SUDAFED) 30 MG tablet Take 30 mg by mouth every 4 hours as needed for Congestion. Active valACYclovir (VALTREX) 1 G tablet Take 1 Tab by mouth three times a day. 21 Tab 10/10/2016 Active Additional Information Patient not taking.Reported on 09/17/2018 triamcinolone acetonide (KENALOG) 0.1 % cream Apply to affected area twice daily for up to 2 weeks. 30 g 10/10/2016 Active Additional Information Patient not taking.Reported on 09/17/2018 cephalexin (KEFLEX) 500 MG capsule TK ONE C PO QID 0 09/12/2018 Activ e Immunizations Name Administration Dates Next Due HepB Ped/Adol (0-18 yrs) 03/06/2003 Tdap 11/26/2017 Social History Tobacco Use Types Packs/Day Years Used Date Smoking Tobacco: Never Smokeless Tobacco: Current Sex and Gender Information Value Date Recorded Sex Assigned at Not on file Gender Identity Not on file Sexual Orientation Not on file Last Filed Vital Signs Vital Sign Reading Time Taken Comments Blood Pressure 96/75 09/17/2018 9:41 AM CDT Pulse 77 09/17/2018 9:41 AM CDT Temperature 36.3 ??C (97.3 ??F) 09/17/2018 9:41 AM CD T Respiratory Rate 15 09/17/2018 9:41 AM CDT Oxygen Saturation 95% 09/17/2018 9:41 AM CDT Inhaled Oxygen Concentration - - Weight 109.4 kg (241 lb 3.2 oz) 09/17/2018 9:41 AM CDT Height 177.2 cm (5' 9.75) 07/10/2015 3:16 PM CD T Body Mass Index 34.86 07/10/2015 3:16 PM CDT Plan of Treatment Health Maintenance Due Date Last Done Comments Hep C Screening (Preventive Services) 1986 HIV Screening (Preventive Services) 2002 HepB (2) 04/03/2003 03/06/2003 Adult Preventive Visit 2004 Cholesterol 2021 COVID-19 Vaccine (1 - 2022-2 4 season) 2022 Influenza (#1) 2022 DTaP/Tdap/Td (2 - Tdap) 11/27/2027 11/26/2017 Zoster/Shingles (1 of 2) 2036 HPV Vaccine Aged Out No longer eligi ble based on patient's age to complete this topic HepA Aged Out No longer eligi ble based on patient's age to complete this topic Hib Aged Out No longer eligi ble based on patient's age to complete this topic IPV (Polio) Aged Out No longer eligi ble based on patient's age to complete this topic MCV4 Aged Out No longer eligi ble based on patient's age to complete this topic Pneumococcal Aged Out No longer eligi ble based on patient's age to complete this topic Care Teams Earth Science Professor Relationship Specialty Start Date End Date Needs Pcp, [place] [address] PCP - General 01/08/22
--- OUTSIDE RECORDS SUMMARY | 2023-08-21 00:24 | XMS_ITS | Clinical Summary ---
Author Name Unknown Organization [facility] Address [place], [place] [address] Care Team Providers Care Service Center Appraiser Name Role Phone Pcp, No Primary Care Provider Unavailabl e Allergies No known active allergies Medications Medication Sig Dispensed Refills Start Date End Date Status ibuprofen (ADVIL; MOTRIN) 600 mg tablet Take 1 tablet by mouth 4 times daily if needed. Maximum of 3200 mg in 24 hours. 0 10/27/2011 Active ketoconazole 2% topical (NIZORAL) 2 % cream Apply to affected area twice daily for 14 days 30 g 11/02/2012 Active triamcinolone (ARISTOCORT; KENALOG) 0.1 % cream Apply to affected area twice daily for 7-14 days 15 g 11/02/2012 Active Active Problems Problem Noted Date Diagnosed Date Pituitary adenoma 10/27/2011 Overview: Had significant headaches in early October 2011 leading to evaluation. Significant headache from roughly October 17-. Then headaches improved significantly, essentially resolved by October 26. Pituitary specific MRI noted : 8.8 x 7.5 x 12.5 mm, complex, cystic lesion expanding the pituitary gland. T1 shortening along the inferior margin of this cystic lesion is unchanged. No gross hemorrhage is identified. A cystic macroadenoma is favored over pituitary apoplexy. Biochemical evaluation normal October 2011. Follow up in January 2012: Asymptomatic. MRI shows the pituitary gland is currently normal, completely resolved. Labs showing normal thyroid function and testosterone. Cortisol in February = normal. MRI findings from February 04, 2012: There is essentially complete resolution of the previous cystic mass lesion within the pituitary gland. The pituitary gland is currently normal in appearance. 14 mm width, 4.7 mm height, and 10.6 mm length. Stalk midline. No invasion or displacement of adjacent structures. Family History Relation Name Status Comments Brother Alive Father Alive Mother Alive Sister Alive Social History Tobacco Use Types Packs/Day Years Used Date Smoking Tobacco: Former Cigarettes Q uit: 04/19/2009 Alcohol Use Standard Drinks/Week Comments Yes 0 (1 standard drink = 0.6 oz pur e alcohol) 1-2 a week on average Sex and Gender Information Value Date Recorded Sex Assigned at Not on file Gender Identity Not on file Sexual Orientation Not on file Obstetrics History Last Filed Vital Signs Vital Sign Reading Time Taken Comments Blood Pressure 104/62 02/11/2012 11:27 AM CDT Pulse 74 02/11/2012 11:27 AM CDT Temperature 36.3 ??C (97.3 ??F) 10/18/2011 5:35 PM CD T Respiratory Rate 16 10/27/2011 8:08 AM CDT Oxygen Saturation 96% 10/19/2011 12:30 AM CDT Inhaled Oxygen Concentration - - Weight 94.9 kg (209 lb 3.2 oz) 02/11/2012 11:27 AM CDT Height 180.3 cm (5' 11) 10/27/2011 8:08 AM CDT Body Mass Index 29.18 10/27/2011 8:08 AM CDT Plan of Treatment Health Maintenance Due Date Last Done Comments Tdap 1997 Depression screening for age 12+ 1998 HIV for age 15-65 2001 BMI (ht and wt on same day) for age 18+ 2004 Hepatitis C screening for ag e 18-79 2004 Tetanus booster 2006 Lipids for age 35-44 2021 COVID-19 vaccine series (2022-24 season) 2022 Influenza for age 9-49 12/19/2023 Pneumococcal series for age 6-64 Aged Out No longer eligible based on patient's age to complete this topic Care Teams Service Center Appraiser Relationship Specialty Start Date End Date Pcp, No . PCP - General 06/01/19
[2023-08-21 00:28] LABS: Lactate* 2.3 mmol/L (0.5-1.9)
[2023-08-21 00:33] LABS: Basophils Absolute Auto 0.03 K/uL (0.00-0.30); Basophils Percent Auto 0.3 % (0.0-3.0); Eosinophils Absolute Auto 0.31 K/uL (0.00-0.50); Eosinophils Percent Auto 2.9 % (0.0-7.0); Hematocrit 42.3 % (37.0-53.0); Hemoglobin* 14.4 gm/dL (13.5-17.5); Immature Granulocytes Abs Auto 0.02 K/uL (0.00-0.30); Immature Granulocytes Pct Auto 0.2 %; Lymphocytes Percent Auto 61.1 % (20-44); Mean Corpuscular HGB Conc 34 gm/dL (32-36); Mean Corpuscular Hemoglobin 29 pg (26-34); Mean Corpuscular Volume 85 fL (80-100); Monocytes Percent Auto 5.6 % (0.0-11.0); Neutrophils Percent Auto 29.9 % (42.0-72.0); Platelet Count* 309 K/uL (140-440); RDW Coefficient of Variation % 12.6 % (11.5-15.5); Red Blood Count 4.99 m/uL (4.30-5.90); White Blood Count* 10.62 K/uL (4.50-11.00)
[2023-08-21 00:44] LABS: Albumin* 4.5 g/dL (3.3-5.0); Chloride* 104 mmol/L (96-114); Potassium* 3.1 mmol/L (3.6-5.1); Sodium* 137 mmol/L (135-149)
[2023-08-21 00:46] LABS: Estimated Glomerular Filt Rate 100 ml/min
[2023-08-21 00:47] LABS: Alanine Aminotransferase* 42 U/L (4-50); Alkaline Phosphatase* 57 U/L (40-150); Anion Gap 9 mEq/L (7-15); Aspartate Amino Transferase* 42 U/L (12-35); Bilirubin Total* 0.5 mg/dL (0.1-1.5); Blood Urea Nitrogen* 17 mg/dL (5-24); Carbon Dioxide* 24 mmol/L (20-32); Glucose* 130 mg/dL (60-115); Total Protein* 7.4 g/dL (6.0-8.3)
[2023-08-21 00:48] LABS: Calcium* 8.7 mg/dL (8.4-10.6)
[2023-08-21 00:58] LABS: C Reactive Protein* < 0.5 mg/dL (0.5-1.0); Ethanol* < 0.01 % (0.01-0.03)
[2023-08-21 01:17] LABS: Slide Review Reflex Yes
[2023-08-21 01:18] LABS: Slide Review Acceptable Review (Acceptable)
--- NOTE | 2023-08-21 03:43 | W.PM.THH&P_ITS ---
Telehealth- H&P: HPI History of Present Illness Date Seen: 08/21/23 Chief complaint: syncope Narrative: Jamshid Paige is seen as an Interactive Telehealth visit. Jamshid Paige is a 37 year old male who is Admitted to the hospital after an episode of syncope. The patient presented to the hospital after he was found to be bradycardic. Earlier today the patient was in his normal state of health. He went to a baseball game and enjoyed the atmosphere. He had a few drinks of alcohol. He came home and was staying with friends. He smoked marijuana, which she has done for every day for 10 years and was relatively stable. After a period of time, he experienced difficulty with his balance and lightheadedness. He noticed that the lights were going out and all of a sudden he saw black. He was found on the ground. For 20 seconds he was noted to be out and unconscious. He awoke without any postictal sign. Ambulance was called. During the episode when he fell, family noted that his health watch noted that his heart rate was in the 30s. When the ambulance came to the house, the patient was noted to be again syncopal and had an episode of bradycardia. Again they noted that his heart rate was in the 30s and they placed pacer pads and the patient was paced. He again woke up about 20 seconds later. When he presented to the ER, his labs are essentially stable. Blood pressure and vital signs are stable. CBC was normal chemistry was normal other than a low potassium and a mildly elevated lactic acid at 2.3. Chest x-ray was normal. Review of Systems Status of ROS: Reports: 6 or more systems reviewed and unremarkable except as noted in History and below Const: Reports: fatigue; Denies: fever, chills or change in weight ENMT: Denies: neck pain Cardio: Reports: lightheadedness; Denies: chest pain, palpitations, shortness of breath with exertion or shortness of breath when lying down Resp: Denies: shortness of breath, cough, wheezing or stridor GI: Reports: nausea; Denies: abdominal pain, vomiting or coffee grounds in vomit : Denies: painful urination Musculo: Denies: back pain, neck pain or joint swelling Neuro: Reports: headache Endo: Reports: fatigue Allergy/Immuno: Denies: wheezing PFSH PFSH Medical History Major depression (~05/07/22) ?F32.9 - Major depressive disorder, single episode, unspecified (ICD-10) Generalized anxiety disorder ?F41.1 - Generalized anxiety disorder (ICD-10) Tinea cruris ?B35.6 - Tinea cruris (ICD-10) Pneumonia ?J18.9 - Pneumonia, unspecified organism (ICD-10) History of herpes zoster ?Z86.19 - Personal history of other infectious and parasitic diseases (ICD- 10) Hemoptysis ?R04.2 - Hemoptysis (ICD-10) Obstructive sleep apnea (2016) ?G47.33 - Obstructive sleep apnea (adult) (pediatric) (ICD-10) Surgical History History of wisdom tooth extraction (2016) ?K08.409 - Partial loss of teeth, unspecified cause, unspecified class (ICD- 10) History of nasal septoplasty (2016) ?Z98.890 - Other specified postprocedural states (ICD-10) History of tonsillectomy (2016) ?Z90.89 - Acquired absence of other organs (ICD-10) History of vasectomy (2016) ?Z98.52 - Vasectomy status (ICD-10) Family History Mother Depression Anxiety Alcohol dependence Sister Depression Anxiety Social History Narrative: , 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 Does not exercise Nonsmoker, quit 2009 history of 5 pack years uses chewing tobacco Rarely consumes alcohol Consumes edilma excessive amount of caffeine What is your current living situation?: I presently have a place to live Problems where you live: no known problems Problems where you live details: n/a In the past 12 months, utilities in danger of being shut off: no In past 12 months, lack of transportation kept you from medical appts, meetings, work, or getting things needed for daily living: no In the past 12 mos, have been you worried that your food would run out before you had money to buy more?: never true In the past 12 mos, the food you bought just didn't last and you didn't have money to buy more?: never true Physical activity type: none Smoking Status: Former smoker Do you use any of these nicotine containing products: None Second hand tobacco smoke exposure: No How often do you have a drink containing alcohol: never How often do you have six or more drinks on one occasion: Never AUDIT-C Alcohol total score: 0 Non-prescribed substance use: denies use Caffeine: Yes Are you now , , , , never or living with a partner: Social isolation score (0-1 are the most socially isolated patients): 1 How often does anyone, including family, friends and others, physically hurt you : never How often does anyone, including family, friends and others, insult or talk down to you: never How often does anyone, including family, friends and others, threaten you with harm: never How often does anyone, including family, friends and others, scream or curse at you: never Little interest or pleasure in doing things: not at all Feeling down, depressed, or hopeless: not at all Meds Home Medications and Allergies Allergies Allergy/AdvReac Type Severity Reaction Status Date / Time No Known Drug Allergies Allergy Verified 06/22/23 11:01 Exam Narrative Exam Narrative: Physical Exam GENERAL: ?vital signs reviewed, well developed and nourished, in no distress HEENT: pupils are equal round and reactive to light, extraocular movements are grossly within normal limits and oral mucosa is moist. NECK: Supple without lymphadenopathy or thyromegaly according to nursing staff examination observation HEART: Regular rate and rhythm without any rubs, murmurs, or gallops. LUNGS: Clear to auscultation bilaterally with good air movement throughout ABDOMEN: Observation from nurse assisted exam, abdomen appears soft, nontender, and nondistended with Positive bowel sounds noted. EXTREMITIES: Strength and sensation is observed to be grossly within normal limits in the upper and lower extremities.? No focal strength deficit is observed. SKIN:? Observed warm and dry with color normal Const Vital Signs, click to edit/add: Vital Signs - 24 hr 08/21/23 00:24 08/21/23 00:26 08/21/23 00:29 Temperature 98.1 F Pulse Rate 73 60 Pulse Rate [Pulse Oximeter] 58 L Respiratory Rate 18 Blood Pressure 115/77 Blood Pressure [Right Arm] Blood Pressure [Right Upper Arm] 102/53 L Pulse Oximetry 100 99 100 Oxygen Delivery Method Room Air 08/21/23 00:29 08/21/23 00:29 08/21/23 00:29 Temperature Pulse Rate 60 60 60 Pulse Rate [Pulse Oximeter] Respiratory Rate Blood Pressure 115/77 115/77 115/77 Blood Pressure [Right Arm] Blood Pressure [Right Upper Arm] Pulse Oximetry 100 100 100 Oxygen Delivery Method 08/21/23 00:30 08/21/23 00:32 08/21/23 00:36 Temperature Pulse Rate 66 67 72 Pulse Rate [Pulse Oximeter] Respiratory Rate Blood Pressure 120/78 122/80 Blood Pressure [Right Arm] Blood Pressure [Right Upper Arm] Pulse Oximetry 100 100 100 Oxygen Delivery Method 08/21/23 00:42 08/21/23 00:43 08/21/23 00:45 Temperature Pulse Rate 76 74 72 Pulse Rate [Pulse Oximeter] Respiratory Rate Blood Pressure 123/72 125/76 Blood Pressure [Right Arm] Blood Pressure [Right Upper Arm] Pulse Oximetry 74 L 100 100 Oxygen Delivery Method 08/21/23 00:46 08/21/23 00:51 08/21/23 00:52 Temperature Pulse Rate 73 73 79 Pulse Rate [Pulse Oximeter] Respiratory Rate Blood Pressure 119/82 119/72 Blood Pressure [Right Arm] Blood Pressure [Right Upper Arm] Pulse Oximetry 100 100 100 Oxygen Delivery Method 08/21/23 00:56 08/21/23 01:00 08/21/23 01:01 Temperature Pulse Rate 78 69 74 Pulse Rate [Pulse Oximeter] Respiratory Rate Blood Pressure 116/86 111/68 Blood Pressure [Right Arm] Blood Pressure [Right Upper Arm] Pulse Oximetry 100 100 100 Oxygen Delivery Method 08/21/23 01:01 08/21/23 01:01 08/21/23 01:06 Temperature Pulse Rate 74 74 75 Pulse Rate [Pulse Oximeter] Respiratory Rate Blood Pressure 111/68 111/68 119/70 Blood Pressure [Right Arm] Blood Pressure [Right Upper Arm] Pulse Oximetry 100 100 100 Oxygen Delivery Method 08/21/23 01:11 08/21/23 01:11 08/21/23 01:11 Temperature Pulse Rate 78 78 78 Pulse Rate [Pulse Oximeter] Respiratory Rate Blood Pressure 122/70 122/70 122/70 Blood Pressure [Right Arm] Blood Pressure [Right Upper Arm] Pulse Oximetry 100 100 100 Oxygen Delivery Method 08/21/23 01:15 08/21/23 01:16 08/21/23 01:21 Temperature Pulse Rate 82 78 78 Pulse Rate [Pulse Oximeter] Respiratory Rate Blood Pressure 120/72 111/70 Blood Pressure [Right Arm] Blood Pressure [Right Upper Arm] Pulse Oximetry 100 100 100 Oxygen Delivery Method 08/21/23 01:26 08/21/23 01:31 08/21/23 01:32 Temperature Pulse Rate 87 85 80 Pulse Rate [Pulse Oximeter] Respiratory Rate Blood Pressure 120/71 108/75 Blood Pressure [Right Arm] Blood Pressure [Right Upper Arm] Pulse Oximetry 100 100 100 Oxygen Delivery Method 08/21/23 01:36 08/21/23 01:41 08/21/23 01:45 Temperature Pulse Rate 77 76 79 Pulse Rate [Pulse Oximeter] Respiratory Rate Blood Pressure 110/65 109/64 Blood Pressure [Right Arm] Blood Pressure [Right Upper Arm] Pulse Oximetry 100 100 100 Oxygen Delivery Method 08/21/23 01:46 08/21/23 01:51 08/21/23 01:56 Temperature Pulse Rate 80 79 79 Pulse Rate [Pulse Oximeter] Respiratory Rate Blood Pressure 113/66 110/64 109/66 Blood Pressure [Right Arm] Blood Pressure [Right Upper Arm] Pulse Oximetry 100 100 100 Oxygen Delivery Method 08/21/23 02:00 08/21/23 02:01 08/21/23 02:06 Temperature Pulse Rate 74 78 77 Pulse Rate [Pulse Oximeter] Respiratory Rate Blood Pressure 110/67 110/66 Blood Pressure [Right Arm] Blood Pressure [Right Upper Arm] Pulse Oximetry 100 100 100 Oxygen Delivery Method 08/21/23 02:11 08/21/23 02:15 08/21/23 02:16 Temperature Pulse Rate 69 73 68 Pulse Rate [Pulse Oximeter] Respiratory Rate Blood Pressure 110/66 110/63 Blood Pressure [Right Arm] Blood Pressure [Right Upper Arm] Pulse Oximetry 100 100 100 Oxygen Delivery Method 08/21/23 02:21 08/21/23 02:22 08/21/23 02:26 Temperature Pulse Rate 71 67 65 Pulse Rate [Pulse Oximeter] Respiratory Rate Blood Pressure 105/66 102/61 Blood Pressure [Right Arm] Blood Pressure [Right Upper Arm] Pulse Oximetry 100 100 100 Oxygen Delivery Method 08/21/23 02:30 08/21/23 02:31 08/21/23 02:36 Temperature Pulse Rate 70 67 74 Pulse Rate [Pulse Oximeter] Respiratory Rate Blood Pressure 105/61 105/68 Blood Pressure [Right Arm] Blood Pressure [Right Upper Arm] Pulse Oximetry 99 99 100 Oxygen Delivery Method 08/21/23 02:41 08/21/23 03:07 08/21/23 03:07 Temperature 97.9 F Pulse Rate 67 Pulse Rate [Pulse Oximeter] 70 Respiratory Rate 18 18 Blood Pressure 105/65 Blood Pressure [Right Arm] 120/71 Blood Pressure [Right Upper Arm] Pulse Oximetry 98 98 98 Oxygen Delivery Method Room Air Room Air Hospitalist - H&P: Result Labs Labs: Short CBC 08/21/23 Range/Units 00:13 WBC 10.62 (4.50-11.00) K/uL Hgb 14.4 (13.5-17.5) gm/dL Hct 42.3 (37.0-53.0) % Plt Count 309 (140-440) K/uL BMP 08/21/23 00:13 Sodium 137 Potassium 3.1 L Chloride 104 Carbon Dioxide 24 BUN 17 Creatinine 1.0 Glucose 130 H Calcium 8.7 Liver Function 08/21/23 Range/Units 00:13 Total Bilirubin 0.5 (0.1-1.5) mg/dL AST 42 H (12-35) U/L ALT 42 (4-50) U/L Alkaline Phosphatase 57 (40-150) U/L Albumin 4.5 (3.3-5.0) g/dL ECG Attestation: I personally reviewed and interpreted this ECG as follows: Assessment and Plan Assessment and plan (1) Syncope and collapse: Status: Acute (2) Bradycardia: Status: Acute Plan This is a 37-year-old male with no significant past medical history who presents to hospital with syncope. Essentially with a history of bradycardia this appears to be cardiogenic syncope. Cardiogenic syncope and a 37-year-old male should make sure we rule out any functional abnormality. Therefore echocardiogram will be ordered telemetry will be ordered. Once this patient discharges, he needs an urgent follow-up with a manufacturing plant technician. There was a concern that perhaps that this was contributed by severe dehydration precipitati ng a vasovagal leg situation. His lactic acid was mildly elevated. Therefore I will continue him on IV fluids. This patient did have a syncopal episode where he did hit his head. There is concerns of headache as well as episodes of bradycardia I do think that a CT head is warranted and I will order this. Patient's was requesting this as well. Telehealth: Statement Statement Telehealth Visit: Today's History and Physical is provided via interactive telehealth by Rashawn Rivera MD.? Patient is located at [facility].? Provider is located at [facility].? Nursing staff assisted with the patient's exam. The visit being done today meets criteria for a telehealth visit and the patient or patient?s parent/guardian is aware the visit is a telehealth visit. Camera Start Time: 03:20 Camera End Time: 03:45
[2023-08-21] MEDS: 0.9 % SODIUM CHLORIDE 1000 ml 1,000 ML 125 ML IV ×2 (04:51→12:41)
[2023-08-21] MEDS: SODIUM CHLORIDE 0.9 % (FLUSH) 10 ML SYRINGE 5 ML IVF (04:52)
--- NOTE | 2023-08-21 07:00 | CT_ITS ---
Patient: KIM DINH Facility:?[facility] Patient ID:?[id number] Site Patient ID:?[id number] Site :?[id number] Study:?CT-Head W/O-08/21/2023 7:15:56 AM Ordering Physician:MEGAN Final Report: Indication: Syncope, fall, trauma Technique: Volumetric multidetector CT images of the head were obtained without the administration of low osmolar intravenous contrast. Comparison: None available Findings: There is no intra-axial or extra-axial fluid collection. There is no mass effect or midline shift. The ventricles and sulci are normal in size and position for age. The brain parenchyma is grossly preserved in attenuation and gillis-white differentiation. The orbits and their contents are grossly within normal limits. The bony calvarium is grossly intact. The paranasal sinuses are clear. The mastoid air cells are well aerated. Impression: No acute intracranial abnormality. Please note that all CT scans at this facility use dose modulation, iterative reconstruction, and/or weight-based dosing when appropriate to reduce radiation dose to as low as reasonably achievable. Dictated by Kelby Tate MD @ 08/21/2023 7:22:51 AM Signed by:?Kelby Tate MD @08/21/2023 7:22:51 AM (Electronic Signature)
[2023-08-21] MEDS: POTASSIUM CHLORIDE 10 MEQ CAPSULE ER 40 MEQ PO (09:09)
[2023-08-21 12:39] LABS: Appearance Urine Clear (Clear); Bilirubin Urine Negative (Negative); Blood Urine Negative (Negative); Color Urine Yellow (Yellow); Glucose Urine Negative (Negative); Ketones Urine Negative (Negative); Leukocyte Esterase Urine Negative (Negative); Nitrite Urine Negative (Negative); Protein Urine Negative (Negative); Specific Gravity Urine 1.015 (1.000-1.030); Urobilinogen Urine 0.2 (0.2-1.0)
[2023-08-21 12:53] LABS: Amphetamine Screen Urine Negative (Negative); Barbiturate Screen Urine Negative (Negative); Benzodiazepines Screen Urine Negative (Negative); Cannabinoid Screen Urine POSITIVE (Negative); Cocaine Screen Urine Negative (Negative); Methadone Screen Urine Negative (Negative); Methamphetamines Screen Urine Negative (Negative); Opiate Screen Urine Negative (Negative); Oxycodone Screen Urine Negative (Negative); Phencyclidine Screen Urine Negative (Negative); Tricyclic Antidepressant Urine Negative (Negative)
--- NOTE | 2023-08-21 15:55 | PM.DS1 ---
DS: Providers Provider Date Seen: 08/21/23 Date of admission: 08/21/23 02:24 Primary care physician: Carl Coombs MD Admitting Clinician: Rashawn Rivera MD Attending Physician on discharge: Emilia Rodriguez [facility] Date of Discharge: 08/21/23 DS: Diagnosis Discharge Diagnosis (1) Syncope and collapse: Status: Acute Problem details: Suspected cardiogenic syncope. Telemetry during hospital course unremarkable, 1 episode of heart rate in the upper 40s. EKG shows NSR, ventricular rate 60. Remained relatively asymptomatic. Mild hypokalemia, 3.1, supplemented with oral replacement. Urine drug screen positive only for THC (obtained at a dispensary). Echocardiogram completed, no evidence of shunting on preliminary review, final cardiology read pending prior to discharge. 48 hour Holter monitor placed, will likely need Zio patch outpatient. Patient is discharged to home to resume normal nonstrenuous activities. Avoid alcohol and marijuana use. Uses nicotine pouches. Does not vape. Close outpatient follow-up with PCP, urgent referral to Cardiology. No reported injury from collapse. CT head unremarkable for acute intracranial findings. (2) Bradycardia: Status: Acute Problem details: As above, no previous known history. Will need further workup with PCP and Cardiology DS: Summary Hospital Course Hospital Course: [age] year old male past medical history significant for anxiety was admitted to the medical floor for observation overnight for bradycardia and syncopal episode. Course of care and details as noted above. Remainder of chronic medical comorbidities were monitored and managed with home medications. Status at Discharge Overall status at discharge: patient is back to baseline Time Spent with Patient Time attestation: Total time spent providing and/or coordinating discharge services: Time spent: Greater than 30 minutes Exam Narrative: Exam Narrative: PHYSICAL EXAM General: Pleasant, conversant, NAD Cardiovascular: RRR Pulmonary: No dyspnea Neurological: Alert, answering questions appropriately Skin: Warm, dry. Const: Vital Signs, click to edit/add: Vital Signs - 24 hr 08/21/23 00:24 08/21/23 00:26 08/21/23 00:29 Temperature 98.1 F Pulse Rate 73 60 Pulse Rate [Pulse Oximeter] 58 L Respiratory Rate 18 Blood Pressure 115/77 Blood Pressure [Ri ght Arm] Blood Pressure [Ri ght Upper Arm] 102/53 L Pulse Oximetry 100 99 100 Oxygen Delivery Mo thod Room Air 08/21/23 00:29 08/21/23 00:29 08/21/23 00:29 Temperature Pulse Rate 60 60 60 Pulse Rate [Pulse Oximeter] Respiratory Rate Blood Pressure 115/77 115/77 115/77 Blood Pressure [Ri ght Arm] Blood Pressure [Ri ght Upper Arm] Pulse Oximetry 100 100 100 Oxygen Delivery Mo thod 08/21/23 00:30 08/21/23 00:32 08/21/23 00:36 Temperature Pulse Rate 66 67 72 Pulse Rate [Pulse Oximeter] Respiratory Rate Blood Pressure 120/78 122/80 Blood Pressure [Ri ght Arm] Blood Pressure [Ri ght Upper Arm] Pulse Oximetry 100 100 [facility] 08/21/23 00:42 08/21/23 00:43 08/21/23 00:45 Temperature Pulse Rate 76 74 72 Pulse Rate [Pulse Oximeter] Respiratory Rate Blood Pressure 123/72 125/76 Blood Pressure [Ri ght Arm] Blood Pressure [Ri ght Upper Arm] Pulse Oximetry 74 L 100 100 Oxygen Delivery Mo thod 08/21/23 00:46 08/21/23 00:51 08/21/23 00:52 Temperature Pulse Rate 73 73 79 Pulse Rate [Pulse Oximeter] Respiratory Rate Blood Pressure 119/82 119/72 Blood Pressure [Ri ght Arm] Blood Pressure [Ri ght Upper Arm] Pulse Oximetry 100 100 100 Oxygen Delivery Mo thod 08/21/23 00:56 08/21/23 01:00 08/21/23 01:01 Temperature Pulse Rate 78 69 74 Pulse Rate [Pulse Oximeter] Respiratory Rate Blood Pressure 116/86 111/68 Blood Pressure [Ri ght Arm] Blood Pressure [Ri ght Upper Arm] Pulse Oximetry 100 100 100 [facility] 08/21/23 01:01 08/21/23 01:01 08/21/23 01:06 Temperature Pulse Rate 74 74 75 Pulse Rate [Pulse Oximeter] Respiratory Rate Blood Pressure 111/68 111/68 119/70 Blood Pressure [Ri ght Arm] Blood Pressure [Ri ght Upper Arm] Pulse Oximetry 100 100 100 Oxygen Delivery Mo thod 08/21/23 01:11 08/21/23 01:11 08/21/23 01:11 Temperature Pulse Rate 78 78 78 Pulse Rate [Pulse Oximeter] Respiratory Rate Blood Pressure 122/70 122/70 122/70 Blood Pressure [Ri ght Arm] Blood Pressure [Ri ght Upper Arm] Pulse Oximetry 100 100 100 [facility] 08/21/23 01:15 08/21/23 01:16 08/21/23 01:21 Temperature Pulse Rate 82 78 78 Pulse Rate [Pulse Oximeter] Respiratory Rate Blood Pressure 120/72 111/70 Blood Pressure [Ri ght Arm] Blood Pressure [Ri ght Upper Arm] Pulse Oximetry 100 100 100 [facility] 08/21/23 01:26 08/21/23 01:31 08/21/23 01:32 Temperature Pulse Rate 87 85 80 Pulse Rate [Pulse Oximeter] Respiratory Rate Blood Pressure 120/71 108/75 Blood Pressure [Ri ght Arm] Blood Pressure [Ri ght Upper Arm] Pulse Oximetry 100 100 100 [facility]xygen Delivery [facility] 08/21/23 01:36 08/21/23 01:41 08/21/23 01:45 Temperature Pulse Rate 77 76 79 Pulse Rate [Pulse Oximeter] Respiratory Rate Blood Pressure 110/65 109/64 Blood Pressure [Ri ght Arm] Blood Pressure [Ri ght Upper Arm] Pulse Oximetry 100 100 100 [facility] 08/21/23 01:46 08/21/23 01:51 08/21/23 01:56 Temperature Pulse Rate 80 79 79 Pulse Rate [Pulse Oximeter] Respiratory Rate Blood Pressure 113/66 110/64 109/66 Blood Pressure [Ri ght Arm] Blood Pressure [Ri ght Upper Arm] Pulse Oximetry 100 100 100 [facility] 08/21/23 02:00 08/21/23 02:01 08/21/23 02:06 Temperature Pulse Rate 74 78 77 Pulse Rate [Pulse Oximeter] Respiratory Rate Blood Pressure 110/67 110/66 Blood Pressure [Ri ght Arm] Blood Pressure [Ri ght Upper Arm] Pulse Oximetry 100 100 100 [facility]xygen Delivery [facility] 08/21/23 02:11 08/21/23 02:15 08/21/23 02:16 Temperature Pulse Rate 69 73 68 Pulse Rate [Pulse Oximeter] Respiratory Rate Blood Pressure 110/66 110/63 Blood Pressure [Ri ght Arm] Blood Pressure [Ri ght Upper Arm] Pulse Oximetry 100 100 100 [facility]xygen Delivery [facility] 08/21/23 02:21 08/21/23 02:22 08/21/23 02:26 Temperature Pulse Rate 71 67 65 Pulse Rate [Pulse Oximeter] Respiratory Rate Blood Pressure 105/66 102/61 Blood Pressure [Ri ght Arm] Blood Pressure [Ri ght Upper Arm] Pulse Oximetry 100 100 100 [facility] 08/21/23 02:30 08/21/23 02:31 08/21/23 02:36 Temperature Pulse Rate 70 67 74 Pulse Rate [Pulse Oximeter] Respiratory Rate Blood Pressure 105/61 105/68 Blood Pressure [Ri ght Arm] Blood Pressure [Ri ght Upper Arm] Pulse Oximetry 99 99 100 [facility] Delivery [facility] 08/21/23 02:41 08/21/23 02:47 08/21/23 03:07 Temperature 97.9 F Pulse Rate 67 Pulse Rate [Pulse Oximeter] 70 Respiratory Rate 18 Blood Pressure 105/65 Blood Pressure [Ri ght Arm] 120/71 Blood Pressure [Ri ght Upper Arm] Pulse Oximetry 98 95 98 [facility] Room Air Room Air 08/21/23 03:07 08/21/23 07:00 08/21/23 07:20 Temperature Pulse Rate 54 L Pulse Rate [Pulse Oximeter] 54 L Respiratory Rate 18 Blood Pressure Blood Pressure [Ri ght Arm] Blood Pressure [Ri ght Upper Arm] Pulse Oximetry 98 [facility] Air 08/21/23 07:20 08/21/23 07:30 08/21/23 11:05 Temperature 97.7 F 97.6 F Pulse Rate Pulse Rate [Pulse Oximeter] 51 L 55 L Respiratory Rate 14 14 Blood Pressure Blood Pressure [Ri ght Arm] 107/70 104/68 Blood Pressure [Ri ght Upper Arm] Pulse Oximetry 92 99 96 [facility] Room Air 08/21/23 15:00 08/21/23 15:00 Temperature 97.6 F Pulse Rate Pulse Rate [Pulse Oximeter] 51 L Respiratory Rate 16 Blood Pressure Blood Pressure [Ri ght Arm] 113/72 Blood Pressure [Ri ght Upper Arm] Pulse Oximetry 96 96 [facility] [address] [facility] Air DS: Data Data Completed and Pending Pending studies at discharge: Echo Labs on day of discharge: Labs from last 24 hours 08/21/23 08/21/23 12:10 00:13 WBC 10.62 RBC 4.99 Hgb 14.4 Hct 42.3 MCV 85 MCH 29 MCHC [address] 12.6 Plt Count 309 Neut % (Auto) 29.9 L Lymph % (Auto) 61.1 H [place] % (Auto) 5.6 Eos % (Auto) 2.9 Baso % (Auto) 0.3 Neut # (Auto) 3.20 Lymph # (Auto) 6.50 H [place] # (Auto) 0.60 Eos # (Auto) 0.31 Baso # (Auto) 0.03 Abs Immat Gran (auto) 0.02 Imm/Tot Granulo (auto) 0.2 Diff Slide Review Acceptable Review Sodium 137 Potassium 3.1 L Chloride 104 Carbon Dioxide 24 Anion Gap 9 BUN 17 Creatinine 1.0 Estimated Creat Clear 98.80 Estimated GFR 100 Glucose 130 H Lactate 2.3 H Calcium 8.7 Total Bilirubin 0.5 AST 42 H ALT 42 Alkaline Phosphatase 57 C-Reactive Protein < 0.5 L Total Protein 7.4 Albumin 4.5 Urine Color Yellow Urine Appearance Clear Urine pH 7.0 Ur Specific [place] 1.015 Urine Protein Negative Urine Glucose (UA) Negative Urine Ketones Negative Urine Blood Negative Urine Nitrite Negative Urine Bilirubin Negative Urine Urobilinogen 0.2 Ur Leukocyte Esterase Negative Urine Opiates Screen Negative Ur Oxycodone Screen Negative Urine Methadone Screen Negative Ur Barbiturates Screen Negative U Tricyclic Antidepress Negative Ur Phencyclidine Scrn Negative Ur Amphetamines Screen Negative U Methamphetamines Scrn Negative U Benzodiazepines Scrn Negative Urine Cocaine Screen Negative U Marijuana (THC) Screen POSITIVE A Ur Drug Screen Comment See Note Ethyl Alcohol < 0.01 L POC Troponin I Pending Imaging CT scan - head: Attestation: I have reviewed the pertinent imaging results. Radiologist's impression: Syncope, fall, trauma Technique: Volumetric multidetector CT images of the head were obtained without the administration of low osmolar intravenous contrast. Comparison: None available Findings: There is no intra-axial or extra-axial fluid collection. There is no mass effect or midline shift. The ventricles and sulci are normal in size and position for age. The brain parenchyma is grossly preserved in attenuation and gillis-white differentiation. The orbits and their contents are grossly within normal limits. The bony calvarium is grossly intact. The paranasal sinuses are clear. The mastoid air cells are well aerated. Impression: No acute intracranial abnormality. Chest x-ray: Attestation: I have reviewed the pertinent imaging results. Radiologist's impression: Chest 1 view. COMPARISON: 01/12/2016. FINDINGS: Lines and tubes: None. Cardiovascular and mediastinum: Heart size and vasculature are normal in caliber and appearance. Lungs and pleural spaces: Mild low lung volumes with bronchovascular crowding. No focal consolidation. No pleural effusion or pneumothorax Bones and soft tissues: Unremarkable for age. IMPRESSION: No evidence of an acute pulmonary process. Discharge Plan Discharge Disposition: Home, Self-Care Date of Admission: 08/21/23 02:24 Attending Provider on Discharge: Emilia Rodriguez Primary Care Provider: Carl Coombs Condition: Improved Anticipated Discharge Date/Time: 08/21/23 15:03 Discharge Medications: Continued escitalopram oxalate [Lexapro] 10 mg tablet 10 mg PO QDAY Qty: 90 3RF Discharge Orders: Discharge Order (Routine); Ordered 08/21/23 Ordered By: Emilia Rodriguez Patient Education: Syncope (GEN), Bradycardia (GEN) Additional Instructions: You are leaving hospital with a Holter monitor in place. Follow-up with your PCP as well as Cardiology for further workup and recommendations. Avoid alcohol use, marijuana use until further workup. Avoid strenuous activity. Activity Level: No strenuous activity Discharge Diet: Regular Follow Up Appointments: [facility] [Provider Group] (Post hospital follow-up this week for bradycardia and syncope. Patient will have to call and schedule the next available appointment.) Jaycob Tristan MD [Staff Physician] - 08/26/23 12:45 pm (bradycardia, syncope, 48 hour Holter monitor) Carl Coombs MD [Primary Care Provider] - (Unavailable, scheduled next available appointment with Dr. Tristan.) Forms: [employer] Info Instructions
--- NOTE | 2023-08-21 16:18 | PC.NURSE ---
Shift Summary: Patient pleasant and cooperative. Up independently in room. HR 50s-70s throughout shift. Had Echo done today and hospitalist in to talk with patient about results prior to discharge. Staff from [facility] here to explain home cardiac monitoring device. Discharge instructions given, patient instructed on follow up. RUPERT Salazar reviewed discharge with patient. Discharged from floor @ 1611, ambulated to car with .
== END 2023-08-21 16:11 | disposition home or self-care (01) ==
LOC: ED 02:10 → MEDSURG 02:25
PROVIDERS: Physician Assistant; Admitting Provider Student in an Organized Health Care Education/Training Program; Emergency Provider Family Medicine; PCP Family Medicine; Visit Provider Student in an Organized Health Care Education/Training Program
DX: R55 Syncope and collapse (principal); R00.1 Bradycardia, unspecified; E86.0 Dehydration; F12.90 Cannabis use, unspecified, uncomplicated; R53.83 Other fatigue; E87.6 Hypokalemia; F41.9 Anxiety disorder, unspecified; G47.33 Obstructive sleep apnea (adult) (pediatric); K08.409 Partial loss of teeth, unspecified cause, unspecified class; Z86.19 Personal history of other infectious and parasitic diseases; Z87.891 Personal history of nicotine dependence; Z90.89 Acquired absence of other organs; Z98.52 Vasectomy status; Z98.890 Other specified postprocedural states
CPT/HCPCS: 36415; 70450; 71045; 80053; 80306; 81003; 82077; 83605; 84484; 85025; 86140; 87040; 93005; 93225; 93226; 93306; 96360; 96361; 99284; 99285; 99291; G0378; A9270; J7030

== ENCOUNTER 2024-09-19 08:58 | Outpatient (CLI) | payer OTHER, SELFPAY | END 2024-09-19 08:59 | disposition home or self-care (01) | PROVIDERS: PCP Family Medicine; Visit Provider Family Medicine | DX: Z00.00 Encounter for general adult medical examination without abnormal findings (principal); F41.1 Generalized anxiety disorder; F33.41 Major depressive disorder, recurrent, in partial remission; Z13.6 Encounter for screening for cardiovascular disorders | CPT/HCPCS: 80048; 80061 ==